=== PATIENT | female | born 1965 | race African-American/Black ===

== ENCOUNTER 2023-06-21 17:12 | Emergency (ER) | payer OTHER, MEDICAID, SELFPAY ==
[2023-06-21 17:15] VITALS: BP 175/104; PULSE 93; RESP 20; TEMP 37.1; O2SAT 97; BMI 32.5
[2023-06-21 17:19] VITALS: BP 175/104; PULSE 87; O2SAT 97
[2023-06-21 17:30] VITALS: PULSE 89; O2SAT 95
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
[2023-06-21 18:00] VITALS: PULSE 87; O2SAT 95
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
[2023-06-21 18:30] VITALS: PULSE 92; RESP 20; O2SAT 95
--- NOTE | 2023-06-21 18:44 | PC.NURSE ---
Dr. salcedo at bedside w/ patient
[2023-06-21] MEDS: methocarbamoL 500 MG TABLET 1500 MG PO (19:02)
[2023-06-21] MEDS: NAPROXEN 250 MG TABLET 500 MG PO (19:27)
[2023-06-21 19:32] VITALS: BP 130/98
== END 2023-06-21 19:33 | disposition home or self-care (01) ==
PROVIDERS: Emergency Provider Emergency Medicine
DX: F07.81 Postconcussional syndrome (principal); S20.211A Contusion of right front wall of thorax, initial encounter; M79.641 Pain in right hand; Z48.02 Encounter for removal of sutures; Z76.0 Encounter for issue of repeat prescription; V89.2XXA Person injured in unspecified motor-vehicle accident, traffic, initial encounter
CPT/HCPCS: 73130; 99283

== ENCOUNTER 2024-08-26 19:08 | Emergency (ER) | payer OTHER, SELFPAY ==
[2024-08-26 19:14] VITALS: BP 155/98; PULSE 104; RESP 18; TEMP 36.8; O2SAT 95; BMI 33.5
== END 2024-08-26 21:58 | disposition left against medical advice (07) ==
PROVIDERS: Emergency Provider Emergency Medicine
DX: R51.9 Headache, unspecified (principal); J02.9 Acute pharyngitis, unspecified; H92.01 Otalgia, right ear
CPT/HCPCS: 36415; 99283